=== PATIENT | female | born 1945 | race Caucasian/White ===

== ENCOUNTER 2018-04-28 11:46 | Emergency (ER) | payer MEDICARE, OTHER ==
--- NOTE | 2018-04-28 13:21 | XRAY Report ---
Procedure Date: 04/28/2018 Accession Number: [id number] / [id number] Procedure: XR - Chest 2 View X-Ray CPT Code: 71065 FULL RESULT: EXAM: CHEST RADIOGRAPHY EXAM DATE: 04/28/2018 01:14 PM. CLINICAL HISTORY: Productive cough for one week. CHEST SORENESS, RESPIRATORY SYMPTOMS. COMPARISON: XR CHEST PA AND LAT 02/27/2009. TECHNIQUE: 2 views. FINDINGS: Lungs/Pleura: No focal opacities evident. No pleural effusion. No pneumothorax. Normal volumes. Mediastinum: Heart and mediastinal contours are unremarkable. Other: There are mild degenerative changes of the thoracic spine. No acute osseous abnormality. There are surgical clips in the right upper quadrant of the abdomen. IMPRESSION: Normal 2-view chest radiography. [facility]
[2018-04-28 13:53] VITALS: BP 130/98
--- NOTE | 2018-04-28 14:16 | ED Physician Documentation ---
PD HPI URI - Stated complaint Stated Complaint: COUGH W/ MUCUS, FATIGUE, - Chief complaint Chief Complaint: Resp - History obtained from History obtained from: Patient - History of Present Illness Timing - onset: How many weeks ago (1.5) Timing duration: Weeks (1.5) Timing details: Gradual onset Pain level max: 0 Pain level now: 0 Associated symptoms: Nasal congestion, Rhinorrhea, Productive cough (yellow). 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: Hysterectomy - Present Medications Home Medications: Ambulatory Orders Medication Instructions Recorded Confirmed Benzonatate [Tessalon Perle] 100 - 200 mg PO TID PRN #30 capsule 04/28/18 - Allergies Allergies/Adverse Reactions: Allergies Allergy/AdvReac Type Severity Reaction Status Date / Time No Known Drug Allergies Allergy Verified 05/20/15 11:16 - Social History Does the pt smoke?: No Smoking Status: Never smoker Does the pt drink ETOH?: Yes Does the pt have substance abuse?: No - Immunizations Immunizations are current?: Yes PD ED PE NORMAL - Vitals Vital signs reviewed: Yes - General General: Alert and oriented X 3, No acute distress - HEENT HEENT: Ears normal, Moist mucous membranes, Pharynx benign - Neck Neck: Supple, no meningeal sign - Cardiac Cardiac: RRR, Strong equal pulses - Respiratory Respiratory: No respiratory distress, Clear bilaterally - Abdomen Abdomen: Soft, Non tender, Non distended - Derm Derm: Warm and dry - Extremities Extremities: No edema - Neuro Neuro: Alert and oriented X 3 - Psych Psych: Normal mood, Normal affect Results - Vitals Vitals: Vital Signs - 24 hr 04/28/18 04/28/18 12:07 13:52 Temperature 36.7 C Heart Rate 70 70 Respiratory 18 16 Rate Blood Pressure 135/78 H 130/98 H O2 Saturation 97 99 Oxygen O2 Source Room air - Rads (name of study) cxr Radiology: Prelim report reviewed, EMP read contemporaneously, See rad report ( normal) PD MEDICAL DECISION MAKING - ED course Complexity details: reviewed results, re-evaluated patient, considered differential, d/w patient, d/w family ED course: Patient is a 72-year-old female with what appears to be a viral upper respiratory infection. Lungs are clear to auscultation bilaterally here. She is very well-appearing, nontoxic. Afebrile. No hypoxia. No respiratory distress. Normal chest x-ray. Will continue supportive care and follow-up with her doctor. Patient counseled regarding signs and symptoms for which I believe and urgent re-evaluation would be necessary. Patient with good understanding of and agreement to plan and is comfortable going home at this time This document was made in part using voice recognition software. While efforts are made to proofread this document, sound alike and grammatical errors may occur. - Sepsis Event Vital Signs: Vital Signs - 24 hr 04/28/18 04/28/18 12:07 13:52 Temperature 36.7 C Heart Rate 70 70 Respiratory 18 16 Rate Blood Pressure 135/78 H 130/98 H O2 Saturation 97 99 Oxygen O2 Source Room air Departure - Departure Disposition: 01 Home, Self Care Clinical Impression: Upper respiratory tract infection Qualifiers: URI type: unspecified viral URI Qualified Code(s): J06.9 - Acute upper respiratory infection, unspecified Condition: Good Instructions: ED URI Viral Follow-Up: your,doctor in 1 week [Other] Prescriptions: Benzonatate [Tessalon Perle] 100 - 200 mg PO TID PRN #30 capsule PRN Reason: Cough Comments: Return if you worsen. Thankfully your chest xray does not show pneunomia today and you do not need antibiotics for this. This should over the next week or so. Discharge Date/Time: 04/28/18 14:42
== END 2018-04-28 14:42 | disposition home or self-care (01) ==
LOC: ED 11:46
DX: J06.9 Acute upper respiratory infection, unspecified (principal)
CPT/HCPCS: 71046; 93005; 99283